=== PATIENT | male | born 1995 | race Caucasian/White ===

== ENCOUNTER 2021-06-12 20:16 | Emergency (ER) | payer OTHER ==
[2021-06-12 20:24] VITALS: BP 118/78; PULSE 62; RESP 20; TEMP 98.1
[2021-06-12] MEDS ORDERED: KETOROLAC 15 MG/ML 1 ML VIAL IVP STA (20:44)
--- NOTE | 2021-06-12 20:47 | ED ---
Extremity Problem HPI - General Chief complaint: Extremity Problem,Nontraumatic Stated complaint: Pain when walking Time Seen by Provider: 06/12/21 20:39 Source: patient, RN notes reviewed Mode of arrival: wheelchair Limitations: no limitations - History of Present Illness Initial comments: This is a pleasant 25-year-old male who presents aversive burn complaining of bilateral leg pain. Patient's has been at [facility] for 10 days for alcohol abuse/recovery. States about 2 or 3 days ago he started having pain in his ankles which radiates both distally and proximally. Pain is exacerbated by palpation and ambulation. Patient states she has been going up and down more stairs than usual while at [facility]. He denies any shortness breath or chest pain. No fever or chills. No injury. Patient did have recent COVID-19 infection. Patient has a history of irregular heartbeat. Denies any other illicit drug abuse. No fever or chills. No skin rashes or lesions. No headache, no fever or chills, no changes in vision or hearing, no sore throat or difficulty with speech, no neck pain, no chest pain or shortness of breath, no abdominal pain, no nausea or vomiting, no changes in urination or bowel movements, no numbness or tingling, no extremity pain, no skin rashes or lesions. MD Complaint: extremity pain - Related Data Home Medications Medication Instructions Recorded Confirmed ARIPiprazole [Abilify] 30 mg PO DAILY 06/12/21 06/12/21 Acetaminophen [Tylenol 8 Hour] 650 mg PO Q4H PRN MDD 3tabs 06/12/21 06/12/21 Calcium/Magnesium/Zinc 1 tab PO TID PRN 06/12/21 06/12/21 [Ysncdes-Ssfsslstw-Jtgk Tablet] FLUoxetine HCL 40 mg PO DAILY 06/12/21 06/12/21 Ibuprofen [Motrin Ib] 600 mg PO Q6H PRN 06/12/21 06/12/21 Multivitamins, Thera [Multivitamin 1 tab PO DAILY 06/12/21 06/12/21 (formulary)] Nicotine Gum (Polacrilex) 2 mg BUCCAL Q2H PRN 06/12/21 06/12/21 [Nicorette] Propranolol HCl 10 mg PO BID 06/12/21 06/12/21 Thiamine HCl [Vitamin B-1] 100 mg PO DAILY 06/12/21 06/12/21 busPIRone HCl [Buspar] 10 mg PO TID 06/12/21 06/12/21 lamoTRIgine [LaMICtal] 75 mg PO DAILY 06/12/21 06/12/21 ondansetron HCL [Zofran] 8 mg PO Q6H PRN 06/12/21 06/12/21 traZODone HCL 50 mg PO HS PRN 06/12/21 06/12/21 Allergies Allergy/AdvReac Type Severity Reaction Status Date / Time bupropion [From Wellbutrin] Allergy Unknown Verified 06/12/21 22:20 citalopram [From Celexa] Allergy Unknown Verified 06/12/21 22:20 risperidone [From Risperdal] Allergy Unknown Verified 06/12/21 22:20 topiramate [From Topamax] Allergy Unknown Verified 06/12/21 22:20 Review of Systems ROS Statement: Those systems with pertinent positive or pertinent negative responses have been documented in the HPI. ROS Other: All systems not noted in ROS Statement are negative. Past Medical History Past Medical History: Seizure Disorder History of Any Multi-Drug Resistant Organisms: C-DIFF Date of last positivie culture/infection: 2014 Past Surgical History: No Surgical Hx Reported Past Psychological History: Anxiety, Depression, Schizophrenia Smoking Status: Current every day smoker Past Alcohol Use History: None Reported Past Drug Use History: Marijuana General Exam - General Exam Comments Initial Comments: Nontoxic appearing male in no significant distress at the time I'm seeing him. Limitations: no limitations General appearance: alert, in no apparent distress Head exam: Present: atraumatic, normocephalic, normal inspection Eye exam: Present: normal appearance, PERRL, EOMI. Absent: scleral icterus, conjunctival injection, periorbital swelling ENT exam: Present: normal exam, mucous membranes moist Neck exam: Present: normal inspection. Absent: tenderness, meningismus, lymphadenopathy Respiratory exam: Present: normal lung sounds bilaterally. Absent: respiratory distress, wheezes, rales, rhonchi, stridor Cardiovascular Exam: Present: regular rate, normal rhythm, normal heart sounds. Absent: systolic murmur, diastolic murmur, rubs, gallop, clicks GI/Abdominal exam: Present: soft, normal bowel sounds. Absent: distended, tenderness, guarding, rebound, rigid Extremities exam: Present: normal inspection, full ROM, other (Pedal pulses are palpable with regards to dorsalis pedis and posterior tibial. Patient does have some tenderness in both calves. No edema noted, no erythema). Absent: tenderness, pedal edema, joint swelling, calf tenderness Back exam: Present: normal inspection Neurological exam: Present: alert, oriented X3, CN II-XII intact Psychiatric exam: Present: normal affect, normal mood Skin exam: Present: warm, dry, intact, normal color. Absent: rash Course Vital Signs 06/12/21 20:19 Temperature 98.1 F Pulse Rate 62 Respiratory 20 Rate Blood Pressure 118/78 O2 Sat by Pulse 98 Oximetry - Reevaluation(s) Reevaluation #1: 06/12/21 22:54 Medical record is reviewed Symptoms are improved here in the emergency department Patient is informed of results and questions answered Patient in no distress Repeat examination reveals that the patient is mostly tender around the Achilles tendon bilaterally. I think this may be related to activity. Wilson's test is normal bilaterally. Medical Decision Making - Medical Decision Making Achilles tendinitis, mild, we'll treat with anti-inflammatories and conservative measures. Venous Doppler studies were negative. Wilson's test is normal. There is no evidence of infectious process or vascular insult. Pedal pulses by Doppler were normal. Follow-up with your regular physician as directed. Return to the ER immediately if any symptoms worsen, new symptoms arise, or any other problems develop. We'll treat with Naprosyn and acetaminophen. Note that the patient has not been on any antibiotics or drugs that would cause tendinopathy. - Lab Data Result diagrams: 06/12/21 21:14 06/12/21 21:14 Lab Results 06/12/21 06/12/21 Range/Units 21:14 21:14 WBC 8.6 (3.8-10.6) k/uL RBC 5.00 (4.30-5.90) m/uL Hgb 15.9 (13.0-17.5) gm/dL Hct 47.1 (39.0-53.0) % MCV 94.2 (80.0-100.0) fL MCH 31.8 (25.0-35.0) pg MCHC 33.8 (31.0-37.0) g/dL RDW 12.8 (11.5-15.5) % Plt Count 320 (150-450) k/uL MPV 7.9 Neutrophils % 49 % Lymphocytes % 39 % Monocytes % 6 % Eosinophils % 4 % Basophils % 1 % Neutrophils # 4.2 (1.3-7.7) k/uL Lymphocytes # 3.3 (1.0-4.8) k/uL Monocytes # 0.5 (0-1.0) k/uL Eosinophils # 0.3 (0-0.7) k/uL Basophils # 0.1 (0-0.2) k/uL Sodium 139 (137-145) mmol/L Potassium 4.9 (3.5-5.1) mmol/L Chloride 107 (98-107) mmol/L Carbon Dioxide 21 L (22-30) mmol/L Anion Gap 11 mmol/L BUN 15 (9-20) mg/dL Creatinine 0.74 (0.66-1.25) mg/dL Est GFR (CKD-EPI)AfAm >90 (>60 ml/min/1.73 sqM) Est GFR (CKD-EPI)NonAf >90 (>60 ml/min/1.73 sqM) Glucose 91 (74-99) mg/dL Calcium 10.1 (8.4-10.2) mg/dL Total Bilirubin 0.9 (0.2-1.3) mg/dL AST 33 (17-59) U/L ALT 38 (4-49) U/L Alkaline Phosphatase 57 (38-126) U/L Creatine Kinase 133 (55-170) U/L Total Protein 7.6 (6.3-8.2) g/dL Albumin 4.9 (3.5-5.0) g/dL Disposition Clinical Impression: Achilles tendinitis of both lower extremities Disposition: HOME SELF-CARE Condition: Good Instructions (If sedation given, give patient instructions): Achilles Tendinitis (ED) Additional Instructions: Light duty for 48 hours Follow-up with orthopedics if symptomology continues. Follow-up with your regular physician as directed. Return to the ER immediately if any symptoms worsen, new symptoms arise, or any other problems develop. Is patient prescribed a controlled substance at d/c from ED?: No Referrals: Sue Rodney DO [Doctor of Osteopathic Medicine] - 06/19/21 Time of Disposition: 22:59
[2021-06-12 21:27] LABS: Basophils # (A) 0.1 k/uL (0-0.2); Basophils % (A) 1 %; Eosinophils # (A) 0.3 k/uL (0-0.7); Eosinophils % (A) 4 %; HCT 47.1 % (39.0-53.0); HGB 15.9 gm/dL (13.0-17.5); Lymphocytes # (A) 3.3 k/uL (1.0-4.8); Lymphocytes % (A) 39 %; MCH 31.8 pg (25.0-35.0); MCHC 33.8 g/dL (31.0-37.0); MCV 94.2 fL (80.0-100.0); Mean Platelet Volume 7.9; Monocytes # (A) 0.5 k/uL (0-1.0); Monocytes % (A) 6 %; Neutrophils # (A) 4.2 k/uL (1.3-7.7); Neutrophils % (A) 49 %; Platelet Count 320 k/uL (150-450); RDW 12.8 % (11.5-15.5); WBC 8.6 k/uL (3.8-10.6)
[2021-06-12 21:36] LABS: ALT 38 U/L (4-49); AST 33 U/L (17-59); African American GFR (CKD) >90 (>60 ml/min/1.73 sqM); Albumin 4.9 g/dL (3.5-5.0); Alkaline Phosphatase 57 U/L (38-126); Anion Gap 11 mmol/L; Blood Urea Nitrogen 15 mg/dL (9-20); Calcium 10.1 mg/dL (8.4-10.2); Carbon Dioxide 21 mmol/L (22-30); Chloride 107 mmol/L (98-107); Creatine Kinase 133 U/L (55-170); Glucose 91 mg/dL (74-99); Non-African American GFR(CKD) >90 (>60 ml/min/1.73 sqM); Sodium 139 mmol/L (137-145); Total Bilirubin 0.9 mg/dL (0.2-1.3); Total Protein 7.6 g/dL (6.3-8.2)
[2021-06-12 21:37] LABS: Potassium 4.9 mmol/L (3.5-5.1)
--- NOTE | 2021-06-12 22:44 | US ---
EXAMINATION TYPE: US venous doppler duplex LE DATE OF EXAM: 06/12/2021 10:24 PM COMPARISON: NONE CLINICAL HISTORY: Bilateral lower leg pain. Pain. Hx SVT in arm. Pt not taking thinners. SIDE PERFORMED: Bilateral TECHNIQUE: The lower extremity deep venous system is examined utilizing real time linear array sonog patsy with graded compression, doppler sonography and color-flow sonography. VESSELS IMAGED: Common Femoral Vein Deep Femoral Vein Greater Saphenous Vein * Femoral Vein Popliteal Vein Small Saphenous Vein * Proximal Calf Veins (* superficial vessels) Limited due to edema. Right Leg: No evidence of DVT in veins imaged at this time. Left Leg: No evidence of DVT in veins imaged at this time. IMPRESSION: No evidence of deep vein thrombosis in both legs.
== END 2021-06-12 23:20 | disposition home or self-care (01) ==
LOC: EC 20:16
DX: M76.62 Achilles tendinitis, left leg (principal); M76.61 Achilles tendinitis, right leg; F41.9 Anxiety disorder, unspecified; F32.A Depression, unspecified; F25.9 Schizoaffective disorder, unspecified; F17.200 Nicotine dependence, unspecified, uncomplicated; F12.90 Cannabis use, unspecified, uncomplicated
CPT/HCPCS: 99284; 96374; 36415; 80053; 82550; 85025; 93970; J1885